=== PATIENT | male | born 1985 | race Caucasian/White ===

== ENCOUNTER 2017-03-14 23:31 | Emergency (ER) | payer BC, OTHER ==
[2017-03-15 00:10] LABS: ABSOLUTE LYMPHOCYTES (AUTO) 1.6 10^3/uL (0.5-4.7); ABSOLUTE MONOCYTES (AUTO) 0.7 10^3/uL (0.1-1.4); ABSOLUTE NEUT (AUTO) 6.6 10^3/uL (1.7-8.2); BASOPHILS % (AUTO) 0.3 % (0-2); EOSINOPHILS % (AUTO) 0.6 % (0-6); HEMATOCRIT 40.2 % (37.9-51.0); HEMOGLOBIN 13.7 g/dL (13.5-17.0); HGB HCT DIFFERENCE 0.9; LYMPHOCYTES % (AUTO) 18.2 % (13-45); MEAN CORPUSCULAR HEMOGLOBIN 27.7 pg (27.0-33.4); MEAN CORPUSCULAR HGB CONC 34.1 g/dL (32.0-36.0); MEAN CORPUSCULAR VOLUME 81 fl (80-97); MONOCYTES % (AUTO) 7.4 % (3-13); RED BLOOD COUNT 4.94 10^6/uL (4.35-5.55); SEGMENTED NEUTROPHILS % (AUTO) 73.5 % (42-78)
--- NOTE | 2017-03-15 00:25 | ER Document Report ---
ED General - General Chief Complaint: Overdose Stated Complaint: PSYCH EVAL Time Seen by Provider: 03/15/17 00:23 Information source: Patient TRAVEL OUTSIDE OF THE [place] IN LAST 30 DAYS: No - HPI Notes: 31-year-old male history of depression presents emergency department with report that he took 5 Ambien and for Robaxin tablets and then used pocketknife send a paring knife to cut up both arms and his neck Any attempt to hurt himself. Patient is unaware of when his last tetanus shot was. He states that his committed suicide in July 2016. Patient states he was working in [employer], but he Started having allergies to trees and grass, and sold off his equipment and has been unable to work since 2014. He claims he is attempting to seek disability, but for unclear reasons. - Related Data Allergies/Adverse Reactions: ibuprofen [From Motrin] Allergy (Verified 05/08/16 22:46) NSAIDS (Non-Steroidal Anti-Inflamma [Nsaids] Allergy (Verified 05/08/16 22:46) Past Medical History - General Information source: Patient - Social History Smoking Status: Current Every Day Smoker Frequency of alcohol use: None Drug Abuse: None Family History: Reviewed & Not Pertinent - Past Medical History Cardiac Medical History: Denies: Hx Hypertension Neurological Medical History: Denies: Hx Migraine Musculoskeltal Medical History: Reports Hx Arthritis - knees, Reports Hx Musculoskeletal Deformity, Reports Hx Musculoskeletal Trauma Psychiatric Medical History: Reports: Hx Anxiety, Hx Bipolar Disorder, Hx Depression - anxiety - Immunizations Immunizations up to date: Yes Hx Diphtheria, Pertussis, Tetanus Vaccination: Yes Review of Systems - Review of Systems Notes: REVIEW OF SYSTEMS: CONSTITUTIONAL : Denies fever, chills, or sweats. Denies recent illness. EENT: Denies eye, ear, throat, or mouth pain or symptoms. Denies nasal or sinus congestion or discharge. Denies throat, tongue, or mouth swelling or difficulty swallowing. CARDIOVASCULAR: Denies chest pain. Denies palpitations or racing or irregular heart beat. Denies ankle edema. RESPIRATORY: Denies cough, cold, or chest congestion. Denies shortness of breath, difficulty breathing, or wheezing. GASTROINTESTINAL: Denies abdominal pain or distention. Denies nausea, vomiting , or diarrhea. Denies blood in vomitus, stools, or per rectum. Denies black, tarry stools. Denies constipation. GENITOURINARY: Denies difficulty urinating, painful urination, burning, frequency, blood in urine, or discharge. MUSCULOSKELETAL: Denies back or neck pain or stiffness. Denies joint pain or swelling. SKIN: Denies rash, lesions or sores. HEMATOLOGIC : Denies easy bruising or bleeding. LYMPHATIC: Denies swollen, enlarged glands. NEUROLOGICAL: Denies confusion or altered mental status. Denies passing out or loss of consciousness. Denies dizziness or lightheadedness. Denies headache. Denies weakness or paralysis or loss of use of either side. Denies problems with gait or speech. Denies sensory loss, numbness, or tingling. Denies seizures. PSYCHIATRIC: Denies homicidal ideation. ALL OTHER SYSTEMS REVIEWED AND NEGATIVE. Dictation was performed using [employer] voice recognition software Physical Exam - Vital signs Vitals: Resp 13 03/14/17 23:40 - Notes Notes: PHYSICAL EXAMINATION: GENERAL: Well-appearing, well-nourished and in no acute distress. HEAD: Atraumatic, normocephalic. EYES: Pupils equal round and reactive to light, extraocular movements intact, sclera anicteric, conjunctiva are normal. ENT: Nares patent, oropharynx clear without exudates. Moist mucous membranes. NECK: Normal range of motion, supple without lymphadenopathy patient has superficial lacerations on the right side of the neck. No deeper lacerations identified. No lacerations even approach the platysma, and do not breach the platysma. LUNGS: Breath sounds clear to auscultation bilaterally and equal. No wheezes rales or rhonchi. HEART: Regular rate and rhythm without murmurs ABDOMEN: Soft, nontender, nondistended abdomen. No guarding, no rebound. No masses appreciated. Musculoskeletal: Normal range of motion, no pitting or edema. No cyanosis. Full range of motion without tendon deficit. NEUROLOGICAL: Cranial nerves grossly intact. Normal speech, normal gait. Normal sensory, motor exams. No motor or sensory deficits noted. PSYCH: Normal mood, normal affect. SKIN: Warm, Dry, normal turgor, no rashes or lesions noted. Multiple approximately 30 superficial lacerations noted on both forearms with 2 deeper lacerations to the left upper extremity one on the dorsum of the hand 1.5 cm in between the second and third metacarpals and 1, 1.2 cm just proximal to the left wrist dorsally. On sterile exploration of these lacerations, there is no observed tendon or nerve or bone. Distally the patient is neurovascularly intact with good distal sensation and capillary refill and pulses and full range of motion without tendon injury and flexion and extension. No evidence for infection or foreign body. Course - Re-evaluation Re-evalutation: 03/15/17 02:14 Following discussion of risks alternatives and benefits, the patient had the wound there is cleaned andSterilely prepped after Shur-Clens was applied, then the 1.5 cm dorsal hand laceration was locally infiltrated with lidocaine with epinephrine approximately 1 mL, then the wound was cleaned and irrigated then reapproximated and closed using a running suture of 4. 0 Ethilon with good result. No significant blood loss there. The second 1.2 cm laceration to the dorsal aspect of the distal forearm was cleaned irrigated with Shur-Clens then was locally infiltrated with lidocaine with epinephrine approximately 0.6 mL and then the wound was further irrigated and explored and then reapproximated and closed using running suture of 4. 0 Ethilon with good result. Blood loss negligible. Following the wound closures, the patient was distally neurovascularly intact with good range of motion. Patient will need suture removal in 10 days. 03/15/17 02:16 Lab studies showed no significant Tylenol or aspirin overdose. Vital signs remained stable. Patient remained alert and interactive. Poison control was contacted and stated the patient had been observed along enough period of time and patient was medically cleared for psychiatric evaluation and recommendations. Note that the patient is attempting to get disability for unclear reasons. 03/15/17 05:12 - Vital Signs Vital signs: Temp Pulse Resp BP Pulse Ox 98.4 F 81 20 111/66 97 03/15/17 03:33 03/15/17 03:33 03/15/17 04:01 03/15/17 04:00 03/15/17 04:01 - Laboratory Result Diagrams: 03/14/17 23:55 03/14/17 23:55 Laboratory results interpreted by me: 03/14/17 03/15/17 23:55 02:25 Potassium 3.2 L BUN 6 L Glucose 117 H Direct Bilirubin 0.5 H AST 16 L Urine Bilirubin SMALL H Salicylates < 1.0 L Acetaminophen < 10 L - EKG Interpretation by Me EKG shows normal: Sinus rhythm Additional EKG results interpreted by me: 03/15/17 05:11 EKG as interpreted by me showed normal sinus rhythm heart rate of 88 with incomplete right bundle branch block. There is no gross evidence for acute UT or ischemia identified. There was no change from previous EKG reviewed in the old record. Discharge - Discharge Clinical Impression: Suicidal intent, Laceration, Cocaine abuse Overdose Qualifiers: Encounter type: initial encounter Injury intent: intentional self-harm Qualified Code(s): T50.902A - Poisoning by unspecified drugs, medicaments and biological substances, intentional self-harm, initial encounter Depression Qualifiers: Depression Type: unspecified Qualified Code(s): F32.9 - Major depressive disorder, single episode, unspecified Referrals: DENNISE ADEN MD [Primary Care Provider] - Follow up as needed
[2017-03-15 00:27] LABS: ALANINE AMINOTRANSFERASE 21 U/L (21-72); ALBUMIN 4.6 g/dL (3.5-5.0); ALKALINE PHOSPHATASE 75 U/L (38-126); ANION GAP 15 (5-19); ASPARTATE AMINO TRANSFERASE 16 U/L (17-59); BILIRUBIN,DIRECT 0.5 mg/dL (0.0-0.4); BILIRUBIN,TOTAL 0.7 mg/dL (0.2-1.3); BLOOD UREA NITROGEN 6 mg/dL (7-20); CARBON DIOXIDE 27 mmol/L (22-30); CHLORIDE 102 mmol/L (98-107); CREATININE RESULT 0.86 mg/dL (0.52-1.25); GLUCOSE 117 mg/dL (75-110); POTASSIUM 3.2 mmol/L (3.6-5.0); SODIUM 143.5 mmol/L (137-145); TOTAL PROTEIN 7.2 g/dL (6.3-8.2)
[2017-03-15 00:29] LABS: ALCOHOL < 10 mg/dL (NONE DETECTED)
[2017-03-15] MEDS ORDERED: LIDOCAINE 1%/EPINEPHRINE INJ 20 ML VIAL INJ ONE (00:35)
[2017-03-15] MEDS ORDERED: DIPH/PERTUSS(ACELL)/TETANUS VAC/PF 0.5 ML SYR (>=10YO) IM ONE (00:38)
[2017-03-15] MEDS: CEPHALEXIN 500 MG CAPSULE PO SCH ×2 (01:01→13:05)
[2017-03-15] MEDS ORDERED: CEPHALEXIN 500 MG CAPSULE PO ONE (01:15)
[2017-03-15] MEDS ORDERED: POTASSIUM CHLORIDE 10 MEQ TABLET.SA PO ONE (02:08)
[2017-03-15] MEDS ORDERED: ALPRAZOLAM 0.5 MG TABLET PO PRN (02:18)
[2017-03-15 02:54] LABS: APPEARANCE,URINE CLEAR; BILIRUBIN,URINE SMALL (NEGATIVE); GLUCOSE, URINE NEGATIVE (NEGATIVE); KETONES,URINE NEGATIVE (NEGATIVE); LEUKOCYTE ESTERASE,URINE NEGATIVE (NEGATIVE); NITRITE,URINE NEGATIVE (NEGATIVE); PROTEIN,URINE NEGATIVE (NEGATIVE); URINE SPECIFIC GRAVITY 1.006; UROBILINOGEN,URINE NEGATIVE mg/dL (<2.0)
[2017-03-15 03:06] LABS: URINE BARBITURATES SCREEN NEGATIVE; URINE METHADONE SCREEN NEGATIVE; URINE OPIATES LOW UNCONFIRMED POSITIVE; URINE PHENCYCLIDINE SCREEN NEGATIVE
--- NOTE | 2017-03-15 07:53 | EKG REPORT ---
SEVERITY:- ABNORMAL ECG - SINUS RHYTHM INCOMPLETE RIGHT BUNDLE BRANCH BLOCK PROBABLE LEFT VENTRICULAR HYPERTROPHY NONSPECIFIC ST-T CHANGES- INFERIOR LEADS : Confirmed by: Wallace Phillips MD 15-Mar-2017 07:53:19
[2017-03-15] MEDS ORDERED: ACETAMINOPHEN 325 MG TABLET PO ONE (07:56)
--- NOTE | 2017-03-15 10:33 | ER Document Report ---
Doctor's Note Notes: 03/15/17 10:31 Pounds: Chart reviewed and patient interview. Reportedly took an overdose of Ambien and Robaxin because he is depressed and feels suicidal. Also cut his arms. Required a couple of sutures. Multiple superficial scratches of the inner aspect of both forearms. Patient's vital signs are all normal. Patient' s lab studies show positive drug screen for cocaine and opiates. Says he is on chronic oxycodone for pain. Says a friend gave him some cocaine. Patient appears to be medically stable for transfer or discharge. Gil Martinez MD
--- NOTE | 2017-03-15 13:50 | PSYCHOLOGICAL NOTE ---
Psych Note - Psych Note Psych Note: patient presented to [facility] ED with history of depression reporting that he took 5 Ambien and for Robaxin tablets and then used pocketknife send a paring knife to cut up both arms and his neck Any attempt to hurt himself. Patient is unaware of when his last tetanus shot was. He states that his committed suicide in July 2016. Patient states he was working in [employer], but he started having allergies to trees and grass, and sold off his equipment; he has been unable to work since 2014. He claims he is attempting to seek disability, but for unclear reasons Patient disclosed he came to [facility] because he tried to hurt himself. He continued disclosed that he "wanted to ." Patient disclosed that his killed herself last July. He states he has been taking Zoloft for 5 years and Xanax for 3 years. Patient denies any mental health providers in the community. He denies any inpatient treatment. Patient states he receives auditory visual hallucinations frequently; i.e. 3 times a week. Patient states there are different places they are in color like visual effects. He continued to state that lately he has been seeing his . Patient was unable to identify if he hears the voices inside or outside of his head stating "I question does not make sense." Denies substance abuse or in the past. Patient continued disclosed that he just wants to go back to [place] however he has court on March 28. Patient states his charges this time was for possession of paraphernalia and heroin. Patient states that he will get off because it "was not heroin." Patient states past charges were from selling marijuana. When asked again patient stated again he has no issues with substance abuse. States he feels his medications work and became confused when clinician suggested that the patient's medications did not work since he was currently under IVC. Patient he is depressed because he has no job, his "living conditions sucks," and he has been in and out of senior care. Patient is alert and orientated to person place time and circumstance. Patient' s mood is euthymic with congruent affect mood, to include smiling and laughing. Patient endorses suicidal ideation denies homicidal ideation. Patient endorses auditory and visual hallucinations; no delusions are noted. Thought process is currently organized and linear. Conversational speech was within normal rate tone and prosody. Eye contact was well-maintained. Intellectual abilities appear to be low average range. Attention and concentration are good. Insight, judgment, impulse control are poor. 292.9 (F11.99) unspecified opiate related disorder 292.9 (F14.99) unspecified stimulant related disorder; cocaine V62.5 (Z65.3) problems related to legal circumstance Bereavement Impression/plan: Patient is recommended for rescind of IVC and is considered psychiatrically clear for discharge. Patient does not meet IVC criteria per [place] GS 122c. While patient endorses suicidal ideation and demonstrated suicidal gestures, intent is questionable. Patient denies substance abuse however toxicology reports show unconfirmed positives for cocaine and opiates. Patient disclosed taking Xanax daily for the last 3 years however no benzodiazepines are present in his system. Patient is observed to have numerous scratches covering most of inner area of both arms and about 5 scratches on the neck. The majority did not break the skin; however, it is noted the patient did require 4 stitches on two different areas. Patient is recommended for outpatient services and mental health through [facility]. Dr. Trammell was consulted on the care and management of this patient; attending physician is in agreement with recommended physician.
[2017-03-15 14:28] VITALS: BP 111/62
== END 2017-03-15 14:33 | disposition home or self-care (01) ==
LOC: ER 23:31
PROC: 0HQGXZZ Repair Left Hand Skin, External Approach (ICD-10-PCS; principal; 2017-03-14)
PROC: 0HQEXZZ Repair Left Lower Arm Skin, External Approach (ICD-10-PCS; 2017-03-14)
DX: T42.6X2A Poisoning by other antiepileptic and sedative-hypnotic drugs, intentional self-harm, initial encounter (principal); T42.8X2A Poisoning by antiparkinsonism drugs and other central muscle-tone depressants, intentional self-harm, initial encounter; S51.812A Laceration without foreign body of left forearm, initial encounter; S51.811A Laceration without foreign body of right forearm, initial encounter; S61.412A Laceration without foreign body of left hand, initial encounter; S11.91XA Laceration without foreign body of unspecified part of neck, initial encounter; X78.1XXA Intentional self-harm by knife, initial encounter; F32.9 Major depressive disorder, single episode, unspecified; F14.10 Cocaine abuse, uncomplicated; I45.10 Unspecified right bundle-branch block; M17.9 Osteoarthritis of knee, unspecified; R52 Pain, unspecified; Z79.891 Long term (current) use of opiate analgesic; Z91.048 Other nonmedicinal substance allergy status; Z88.6 Allergy status to analgesic agent; Z88.8 Allergy status to other drugs, medicaments and biological substances; F17.200 Nicotine dependence, unspecified, uncomplicated
CPT/HCPCS: 93005; 99285; 90471; 36415; 80307 ×4; 85025; 80053; 81001; 90715; 93010; 12002; J3490

== ENCOUNTER 2017-06-14 16:18 | Emergency (ER) | payer BC ==
[2017-06-14 16:59] LABS: ABSOLUTE EOSINOPHILS # (AUTO) 0.2 10^3/uL (0.0-0.6); ABSOLUTE LYMPHOCYTES (AUTO) 1.3 10^3/uL (0.5-4.7); ABSOLUTE MONOCYTES (AUTO) 0.6 10^3/uL (0.1-1.4); ABSOLUTE NEUT (AUTO) 4.3 10^3/uL (1.7-8.2); BASOPHILS % (AUTO) 0.4 % (0-2); EOSINOPHILS % (AUTO) 2.8 % (0-6); HEMATOCRIT 40.7 % (37.9-51.0); HGB HCT DIFFERENCE 1.3; LYMPHOCYTES % (AUTO) 20.2 % (13-45); MEAN CORPUSCULAR HEMOGLOBIN 28.6 pg (27.0-33.4); MEAN CORPUSCULAR HGB CONC 34.3 g/dL (32.0-36.0); MEAN CORPUSCULAR VOLUME 83 fl (80-97); MONOCYTES % (AUTO) 9.6 % (3-13); RED BLOOD COUNT 4.89 10^6/uL (4.35-5.55); RED CELL DISTRIBUTION WIDTH 13.9 % (11.5-14.0); WHITE BLOOD COUNT 6.4 10^3/uL (4.0-10.5)
[2017-06-14 17:26] LABS: ALANINE AMINOTRANSFERASE 31 U/L (21-72); ALBUMIN 4.6 g/dL (3.5-5.0); ALKALINE PHOSPHATASE 93 U/L (38-126); ANION GAP 11 (5-19); ASPARTATE AMINO TRANSFERASE 38 U/L (17-59); BILIRUBIN,DIRECT 0.4 mg/dL (0.0-0.4); BILIRUBIN,TOTAL 0.6 mg/dL (0.2-1.3); BLOOD UREA NITROGEN 11 mg/dL (7-20); CARBON DIOXIDE 27 mmol/L (22-30); CHLORIDE 99 mmol/L (98-107); CREATININE RESULT 0.93 mg/dL (0.52-1.25); GLUCOSE 76 mg/dL (75-110); POTASSIUM 4.2 mmol/L (3.6-5.0); SODIUM 136.7 mmol/L (137-145); TOTAL PROTEIN 6.8 g/dL (6.3-8.2)
[2017-06-14 17:27] LABS: ALCOHOL < 10 mg/dL (NONE DETECTED)
[2017-06-14] MEDS ORDERED: ONDANSETRON HCL INJ/PF 4 MG/2 ML SDV IV ONE (17:53)
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
[2017-06-14 19:52] LABS: APPEARANCE,URINE CLEAR; BILIRUBIN,URINE NEGATIVE (NEGATIVE); GLUCOSE, URINE NEGATIVE (NEGATIVE); KETONES,URINE NEGATIVE (NEGATIVE); LEUKOCYTE ESTERASE,URINE NEGATIVE (NEGATIVE); NITRITE,URINE NEGATIVE (NEGATIVE); PROTEIN,URINE NEGATIVE (NEGATIVE); URINE SPECIFIC GRAVITY 1.008; UROBILINOGEN,URINE NEGATIVE mg/dL (<2.0)
--- NOTE | 2017-06-14 19:54 | RADIOLOGY REPORT (SQ) ---
EXAM DESCRIPTION: CHEST PA/LAT COMPLETED DATE/TIME: 06/14/2017 7:21 pm REASON FOR STUDY: Vomiting and low O2 sat. R/O aspiration COMPARISON: 05/08/2016 EXAM PARAMETERS: NUMBER OF VIEWS: two views TECHNIQUE: Digital Frontal and Lateral radiographic views of the chest acquired. RADIATION DOSE: NA LIMITATIONS: none FINDINGS: LUNGS AND PLEURA: No opacities, masses or pneumothorax. No pleural effusion. MEDIASTINUM AND HILAR STRUCTURES: No masses or contour abnormalities. HEART AND VASCULAR STRUCTURES: Heart normal size. No evidence for failure. BONES: No acute findings. HARDWARE: None in the chest. OTHER: No other significant finding. IMPRESSION: NO SIGNIFICANT RADIOGRAPHIC FINDING IN THE CHEST. TECHNICAL DOCUMENTATION: JOB ID: [id number] [employer]- All Rights Reserved
[2017-06-14 20:09] LABS: URINE BARBITURATES SCREEN NEGATIVE; URINE METHADONE SCREEN NEGATIVE; URINE OPIATES LOW UNCONFIRMED POSITIVE; URINE PHENCYCLIDINE SCREEN NEGATIVE
--- NOTE | 2017-06-14 21:54 | EKG REPORT ---
SEVERITY:- ABNORMAL ECG - SINUS RHYTHM PROBABLE LEFT VENTRICULAR HYPERTROPHY : Confirmed by: Buffy Bueno 14-Jun-2017 21:53:22
--- NOTE | 2017-06-15 09:43 | ER Document Report ---
Doctor's Note Notes: 06/15/17 09:42 As the rounding physician for our psychiatric patients, I have reviewed the chart, vitals, lab work. Patient has been examined and noted to be medically stable. I am awaiting mental health in [place].
[2017-06-15 10:59] VITALS: BP 115/55
== END 2017-06-15 14:57 | disposition home or self-care (01) ==
LOC: ER 16:18
DX: F19.20 Other psychoactive substance dependence, uncomplicated (principal); R45.851 Suicidal ideations; F32.9 Major depressive disorder, single episode, unspecified; R11.10 Vomiting, unspecified; R44.0 Auditory hallucinations; Z65.3 Problems related to other legal circumstances; Z88.6 Allergy status to analgesic agent
CPT/HCPCS: 93005; 99285; 96374; 36415; 80307 ×4; 85025; 80053; 81001; 71020; 93010; J2405

== ENCOUNTER 2017-07-24 12:40 | Emergency (ER) | payer BC ==
--- NOTE | 2017-07-24 12:52 | ER Document Report ---
Addendum entered and electronically signed by ELLIOTT MARTINEZ MD 07/24/17 20:32: Discharge - Discharge Clinical Impression: Suicidal ideation, Suicidal behavior with attempted self-injury Condition: Stable Disposition: PSYCH HOSP/UNIT Original Note: ED Psych Disorder / Suicide - General Information source: Dr. Jimenez - Mobile Crisis called to give report they were notified but patient was transproted to ED prior to them physically responding, [facility] Records - HPI Normal mood: Yes Associated symptoms: Normal affect, Normal mood, Depressed <ASHISH VARGAS - Last Filed: 07/24/17 14:10> - General Mode of Arrival: Medic Information source: Patient, Emergency Med Personnel TRAVEL OUTSIDE OF THE [place] IN LAST 30 DAYS: No - HPI Patient complains to provider of: Suicidal ideation, Self injury Onset: This morning Onset was: Cannot confirm Quality of pain: No pain Suicide Risk Factors: Bipolar, Depressed, Male, Substance abuse Situational problems related to: Other - [employer] Suicide Attempt Method: Stabbing/Cutting Injury to: Neck, Wrist - AND FOREARM, LEFT Associated symptoms: Agitated Similar symptoms previously: Yes Recently seen / treated by doctor: Yes - SAYS ROUTINELY SEES DR. ADEN <ELLIOTT MARTINEZ - Last Filed: 07/24/17 20:32> <KOREY HUFFMAN - Last Filed: 07/25/17 10:49> - General Chief Complaint: Psych Problem Stated Complaint: SUDICIAL IDEATION Time Seen by Provider: 07/24/17 12:48 - HPI Notes: Patient is a 32 year old male who presented via EMS for self injurious cuts on his neck, reportedly done prior to arrival. Cuts were noted as superficial and did not require suturing. EMS reported the injury as an attempt at by suicide. Patient is known to this clinician as well as this department for prior episodes of similar etiology. Patient has a long history of self injurious cutting, to include numerous old scars noted on arms, legs, and neck, as well as long history of substance abuse and depression. Patient this afternoon states it is the anniversary of his 's , and states she overdosed last July on 90+ Percocets and 90+ Xanax. He states he struggles with daily chronic pain, and is tired of his grief, depression, and chronic pain. Patient states he is from [place], where the majority of his family still resides; however, is "stuck in [place]" due to a pending DUI case. Patient states he was pulled over and arrested the day after his and was caught with copious amounts of Fentanyl, which he states he planned to use to overdose on with the intent to . Patient states he cannot work due to this chronic pain , and struggles financially. He states he lives with an elderly man, who prefers to remain "anonymous." Patient states it is temporary but he is able to return upon discharge from this facility or another. Patient does acknowledge that he used cocaine yesterday. Patient states he has given up on life. Patient is A&O. Mood is euthymic, with at times smiling affect. Patient endorses suicidal ideations with intent. Patient denies homicidal ideations, intent, plan, or means. Patient denies A/V H; delusions not noted. Thought processes were organized. Conversational speech was within normal limits for rate, tone, and prosody. Intellectual abilities were estimated within average range. Attention and focus were good. Insight, judgment, and impulse control were poor. 292.9 (F11.99) unspecified opiate related disorder 292.9 (F14.99) unspecified stimulant related disorder; cocaine V62.5 (Z65.3) problems related to legal circumstance Bereavement Patient is recommended for IVC for further evaluation and disposition. Patient is presenting with self inflicted lacerations/suicidal ideations which should be noted were precipitated by cocaine use last night. At this time, it is unclear if the patient's SI and depressive symptoms related to his grief are exasperated due to the cocaine use and "coming down," or if he wants to by suicide regardless of the drug use. Patient will be reevaluated at a later time. I consulted with Dr. Trammell in regards to the care and management of this patient. (ASHISH VARGAS) - Related Data Allergies/Adverse Reactions: ibuprofen [From Motrin] Allergy (Verified 07/24/17 13:23) NSAIDS (Non-Steroidal Anti-Inflamma [Nsaids] Allergy (Verified 07/24/17 13:23) Home Medications: Current Home Medications Alprazolam [Alprazolam] 1 mg PO DAILYP PRN 07/24/17 [History] Oxycodone HCl/Acetaminophen [Oxycodon-Acetaminophen 7.5-325] 1 each PO Q8HP PRN 07/24/17 [History] Past Medical History - General Information source: Patient - Social History Smoking Status: Current Every Day Smoker Cigarette use (# per day): Yes Chew tobacco use (# tins/day): No Frequency of alcohol use: None Drug Abuse: Cocaine Lives with: Friend Family History: Reviewed & Not Pertinent Patient has suicidal ideation: Yes Patient has homicidal ideation: No - Past Medical History Cardiac Medical History: Reports: None Denies: Hx Hypertension Pulmonary Medical History: Reports: None EENT Medical History: Reports: None Neurological Medical History: Reports: None. Denies: Hx Migraine Endocrine Medical History: Reports: None Renal/ Medical History: Reports: None Malignancy Medical History: Reports None GI Medical History: Reports: None Musculoskeltal Medical History: Reports Hx Arthritis - knees, Reports Hx Musculoskeletal Deformity, Reports Hx Musculoskeletal Trauma Psychiatric Medical History: Reports: Hx Anxiety, Hx Bipolar Disorder, Hx Depression - anxiety Surgical Hx: Negative - Immunizations Immunizations up to date: Yes Hx Diphtheria, Pertussis, Tetanus Vaccination: Yes <ELLIOTT MARTINEZ - Last Filed: 07/24/17 20:32> Review of Systems - Review of Systems Constitutional: No symptoms reported EENT: No symptoms reported Cardiovascular: No symptoms reported Respiratory: No symptoms reported Gastrointestinal: No symptoms reported Genitourinary: No symptoms reported Musculoskeletal: Back pain - CHRONIC Skin: See HPI Neurological/Psychological: Depression <ELLIOTT MARTINEZ - Last Filed: 07/24/17 20:32> Physical Exam - Vital signs Interpretation: Hypertensive - General General appearance: Appears well, Alert In distress: None - HEENT Head: Normocephalic Eyes: Normal Conjunctiva: Normal Ears: Normal Nasal: Normal Mouth/Lips: Normal Mucous membranes: Normal Neck: Other - SUPERFICIAL LACERATION R. NECK, SCARS FROM PREVIOUS SIMILAR TRAUMA. - Respiratory Respiratory status: No respiratory distress Chest status: Tender - R. 7th RIB @ A.A.L. Breath sounds: Normal - Cardiovascular Rhythm: Regular Heart sounds: Normal auscultation Murmur: No - Abdominal Inspection: Normal Distension: No distension - Back Back: Normal - Extremities General upper extremity: No: Normal inspection - L. WRIST & FOREARM WITH MULTIPLE SUPERFICIAL LACERATIONS. N/V INTACT DISTALLY. General lower extremity: Normal inspection - Neurological Neuro grossly intact: Yes Cognition: Normal Orientation: AAOx4 - Psychological Associated symptoms: Agitated - Skin Skin Temperature: Warm Skin Moisture: Dry Skin Color: Normal Skin Turgor: Elastic Skin irregularity: Laceration - SEE ABOVE <ELLIOTT MARTINEZ - Last Filed: 07/24/17 20:32> - Vital signs Vitals: Temp Pulse Resp BP Pulse Ox 98.3 F 100 18 144/80 H 99 07/24/17 13:04 07/24/17 13:04 07/24/17 13:04 07/24/17 13:04 07/24/17 13:04 Course - Laboratory Result Diagrams: 07/24/17 13:05 07/24/17 13:05 <ASHISH VARGAS - Last Filed: 07/24/17 14:10> - Laboratory Result Diagrams: 07/24/17 13:05 07/24/17 13:05 <ELLIOTT MARTINEZ - Last Filed: 07/24/17 20:32> - Laboratory Result Diagrams: 07/24/17 13:05 07/24/17 13:05 <KOREY HUFFMAN - Last Filed: 07/25/17 10:49> - Re-evaluation Re-evalutation: 07/25/17 10:49 Patient has been accepted at [facility] by Dr Chapa, awaiting transport (KOREY HUFFMAN) - Vital Signs Vital signs: Temp Pulse Resp BP Pulse Ox 98.3 F 79 16 113/63 100 07/25/17 07:54 07/25/17 07:54 07/25/17 07:54 07/25/17 07:54 07/25/17 07:54 - Laboratory Laboratory results interpreted by me: 07/24/17 07/24/17 07/24/17 13:05 13:05 13:05 WBC 11.0 H Seg Neutrophils % 79.2 H Absolute Neutrophils 8.7 H Potassium 3.5 L Direct Bilirubin 0.5 H AST 15 L Urine Bilirubin SMALL H Salicylates < 1.0 L Acetaminophen < 10 L Discharge <ASHISH VARGAS - Last Filed: 07/24/17 14:10> <ELLIOTT MARTINEZ - Last Filed: 07/24/17 20:32> <KOREY HUFFMAN - Last Filed: 07/25/17 10:49> - Discharge Clinical Impression: Suicidal ideation, Suicidal behavior with attempted self-injury Condition: Stable Disposition: PSYCH HOSP/UNIT
[2017-07-24 13:17] LABS: ABSOLUTE LYMPHOCYTES (AUTO) 1.5 10^3/uL (0.5-4.7); ABSOLUTE MONOCYTES (AUTO) 0.7 10^3/uL (0.1-1.4); ABSOLUTE NEUT (AUTO) 8.7 10^3/uL (1.7-8.2); BASOPHILS % (AUTO) 0.4 % (0-2); EOSINOPHILS % (AUTO) 0.3 % (0-6); HEMATOCRIT 38.1 % (37.9-51.0); HEMOGLOBIN 13.5 g/dL (13.5-17.0); HGB HCT DIFFERENCE 2.4; LYMPHOCYTES % (AUTO) 13.6 % (13-45); MEAN CORPUSCULAR HEMOGLOBIN 28.6 pg (27.0-33.4); MEAN CORPUSCULAR HGB CONC 35.4 g/dL (32.0-36.0); MEAN CORPUSCULAR VOLUME 81 fl (80-97); MONOCYTES % (AUTO) 6.5 % (3-13); RED BLOOD COUNT 4.73 10^6/uL (4.35-5.55); RED CELL DISTRIBUTION WIDTH 13.4 % (11.5-14.0); SEGMENTED NEUTROPHILS % (AUTO) 79.2 % (42-78)
[2017-07-24] MEDS ORDERED: NICOTINE 21 MG/24 HR PATCH.TD24 TD ONE (13:31)
[2017-07-24 13:36] LABS: ALANINE AMINOTRANSFERASE 25 U/L (21-72); ALBUMIN 4.5 g/dL (3.5-5.0); ALKALINE PHOSPHATASE 58 U/L (38-126); ASPARTATE AMINO TRANSFERASE 15 U/L (17-59); BILIRUBIN,DIRECT 0.5 mg/dL (0.0-0.4); BILIRUBIN,TOTAL 0.7 mg/dL (0.2-1.3); BLOOD UREA NITROGEN 8 mg/dL (7-20); CREATININE RESULT 1.04 mg/dL (0.52-1.25); GLUCOSE 100 mg/dL (75-110); TOTAL PROTEIN 6.6 g/dL (6.3-8.2)
[2017-07-24 13:38] LABS: APPEARANCE,URINE CLEAR; BILIRUBIN,URINE SMALL (NEGATIVE); GLUCOSE, URINE NEGATIVE (NEGATIVE); KETONES,URINE NEGATIVE (NEGATIVE); LEUKOCYTE ESTERASE,URINE NEGATIVE (NEGATIVE); NITRITE,URINE NEGATIVE (NEGATIVE); PROTEIN,URINE NEGATIVE (NEGATIVE); URINE SPECIFIC GRAVITY 1.009; UROBILINOGEN,URINE NEGATIVE mg/dL (<2.0)
[2017-07-24 13:44] LABS: ANION GAP 9 (5-19); CARBON DIOXIDE 28 mmol/L (22-30); CHLORIDE 103 mmol/L (98-107); POTASSIUM 3.5 mmol/L (3.6-5.0)
[2017-07-24 13:47] LABS: ALCOHOL < 10 mg/dL (NONE DETECTED)
[2017-07-24 13:52] LABS: URINE BARBITURATES SCREEN NEGATIVE; URINE METHADONE SCREEN NEGATIVE; URINE OPIATES LOW NEGATIVE; URINE PHENCYCLIDINE SCREEN NEGATIVE
--- NOTE | 2017-07-24 14:36 | EKG REPORT ---
SEVERITY:- ABNORMAL ECG - SINUS RHYTHM PROBABLE LEFT VENTRICULAR HYPERTROPHY : Confirmed by: Jessica Manuel MD 24-Jul-2017 14:35:54
--- NOTE | 2017-07-25 09:20 | ER Document Report ---
Doctor's Note Notes: 07/25/17 09:19 As the rounding physician for our psychiatric patients, I have reviewed the chart, vitals, lab work. Patient has been examined and noted to be resting comfortably. I am awaiting mental health in put. 07/25/17 10:19
[2017-07-25] MEDS ORDERED: ACETAMINOPHEN 325 MG TABLET PO ONE (11:00)
[2017-07-25 12:15] VITALS: BP 113/71
== END 2017-07-25 12:08 ==
LOC: ER 12:40
DX: R45.851 Suicidal ideations (principal); F11.99 Opioid use, unspecified with unspecified opioid-induced disorder; F14.99 Cocaine use, unspecified with unspecified cocaine-induced disorder; F17.210 Nicotine dependence, cigarettes, uncomplicated; Z65.3 Problems related to other legal circumstances; Z88.6 Allergy status to analgesic agent
CPT/HCPCS: 36415; 80053; 80307; 81001; 85025; 93005; 93010; 99285

== ENCOUNTER 2019-08-16 20:02 | Emergency (ER) | payer SELFPAY ==
[2019-08-16 20:07] VITALS: BP 127/76
--- NOTE | 2019-08-16 20:57 | ER Document Report ---
ED General - General Chief Complaint: Suture Removal Stated Complaint: REMOVE STITCHES Time Seen by Provider: 08/16/19 20:37 Primary Care Provider: DENNISE ADEN MD [Primary Care Provider] - Follow up as needed TRAVEL OUTSIDE OF THE [place] IN LAST 30 DAYS: No - HPI Notes: 34-year-old male presents for suture removal. Patient sustained a large laceration to his chest proximal 1011 days ago. Healing well, no drainage, no complications. - Related Data Allergies/Adverse Reactions: ibuprofen [From Motrin] Allergy (Verified 07/24/17 13:23) NSAIDS (Non-Steroidal Anti-Inflamma [Nsaids] Allergy (Verified 07/24/17 13:23) Past Medical History - Social History Smoking Status: Unknown if Ever Smoked Family History: Reviewed & Not Pertinent - Past Medical History Cardiac Medical History: Denies: Hx Hypertension Neurological Medical History: Denies: Hx Migraine Renal/ Medical History: Denies: Hx Peritoneal Dialysis Musculoskeletal Medical History: Reports Hx Arthritis - knees, Reports Hx Musculoskeletal Deformity, Reports Hx Musculoskeletal Trauma Psychiatric Medical History: Reports: Hx Anxiety, Hx Bipolar Disorder, Hx Depression - anxiety - Immunizations Immunizations up to date: Yes Hx Diphtheria, Pertussis, Tetanus Vaccination: Yes Review of Systems - Review of Systems Notes: Eyes any fever or drainage Physical Exam - Vital signs Vitals: Temp Pulse Resp BP Pulse Ox 98.2 F 72 16 127/76 H 100 08/16/19 20:06 08/16/19 20:06 08/16/19 20:06 08/16/19 20:06 08/16/19 20:06 - Notes Notes: General: Well devloped, no acute distress. HEENT: Normocephalic, atraumatic. Pupils equal round reactive to light. Mucosa moist. No JVD. Chest: No trauma, normal excursion. Respiratory: Good air exchange, normal excursion. Cardiac: Regular rhythm Abdomen: Soft, benign. Nondistended. Back: No asymmetry or gross abnormality. Motor: Grossly normal power and tone. Neurologic: Alert, nonfocal. Vascular: Well perfused Skin: No petechiae or purpura Large linear laceration across the mid chest healing well, minimal inflammation. Course - Re-evaluation Re-evalutation: 08/16/19 20:56 Sutures to be removed, outpatient follow-up. - Vital Signs Vital signs: Temp Pulse Resp BP Pulse Ox 98.2 F 72 16 127/76 H 100 08/16/19 20:06 08/16/19 20:06 08/16/19 20:06 08/16/19 20:06 08/16/19 20:06 Discharge - Discharge Clinical Impression: Encounter for removal of sutures Condition: Stable Disposition: HOME, SELF-CARE Instructions: Suture Removal Referrals: DENNISE ADEN MD [Primary Care Provider] - Follow up as needed
== END 2019-08-16 21:09 | disposition home or self-care (01) ==
LOC: ER 20:02
DX: S21.119D Laceration without foreign body of unspecified front wall of thorax without penetration into thoracic cavity, subsequent encounter (principal); X58.XXXD Exposure to other specified factors, subsequent encounter; Z88.8 Allergy status to other drugs, medicaments and biological substances